=== PATIENT | male | born 1970 | race Caucasian/White ===

== ENCOUNTER 2017-04-12 14:00 | Emergency (ER) | payer OTHER ==
[~2017-04-12] VITALS: Ht 190.5 cm; Wt 115.1 kg
[~2017-04-12 14:00] MED LIST: ATARAX,VISTARIL25 MG PO; HYDROXYZINE HCL25 MG PO; RISPERIDONE0.25 MG PO; ZYRTEC10 M3 PO
[2017-04-12 15:30] VITALS: BP 150/101
== END 2017-04-12 15:30 | disposition home or self-care (01) ==
LOC: EME 14:00
DX: R51 Headache (principal); J34.9 Unspecified disorder of nose and nasal sinuses; F17.200 Nicotine dependence, unspecified, uncomplicated
CPT/HCPCS: 99281; 99284; J1885